=== PATIENT | male | born 1985 ===

== ENCOUNTER 2024-01-14 16:13 | Emergency (ER) | payer OTHER, SELFPAY ==
[2024-01-14 16:14] VITALS: BP 129/81
[2024-01-14 16:25] LABS: Glucose - Point of Care 140 mg/dl (70-99)
--- NOTE | 2024-01-14 16:25 | ED.GENMED ---
History of Present Illness
General
Chief Complaint: Change in Mental Status
Time Seen by Provider: 01/14/24 16:17
History of Present Illness
History of Present Illness:
38-year-old male presents requesting a correctional facility due to altered mental status. He has been in custody since yesterday according to nursing home guards at the bedside they have been having difficulty restraining him and he is minimally
communicative. He had a fall yesterday striking his head on the door and he has also been reportedly drinking urine toilet. On arrival the patient appears catatonic but will occasionally call out in a foreign language. He does respond to simple
questions on occasion.
Review of Systems
Review of Systems
Allergies reviewed?: Yes
All Other Systems: ROS reviewed and negative except as documented in HPI and ROS
Phy Exam
Physical Exam
Physical Exam:
GEN: Lying still in exam bed, catatonic with occasional jerking motions of the extremities
HEENT: Ecchymosis to the right orbit with no swelling or deformity oral mucosa moist, no scleral icterus
Cardiac: Regular rate
Lung: No respiratory distress, no tachypnea
MSK: No gross deformity or injuries
Skin: Good color, no pallor or jaundice, no rashes
Neuro: Eyes open, occasionally responds to basic questions, appears to be responding to internal stimuli
Psych: Generally uncooperative, does not follow commands, catatonic
Course
Orders/Labs/Results
Orders:
Orders
01/14/24 16:24
CT Head W/o Iv Contrast Urgent
Comment:
Reason For Exam: AMS
01/14/24 16:52
CPK [Creatine Phosphokinase] Urgent
Complete Blood Count/With Diff Urgent
Comprehensive Metabolic Panel Urgent
Urinalysis Reflex To Culture Urgent
Date Specimen was Collected: 01/14/24
Time Specimen was Collected: 16:51
Urine Microscopic Reflex Cult Urgent
01/14/24 16:58
Straight Cath As Directed
Frequency: One time now
01/14/24 17:31
Add On- LAB Urgent
Tests Added?: TSH
01/14/24 17:34
Olanzapine [Zyprexa] 5 mg IM NOW STA
01/14/24 17:43
Sterile Water [Sterile Water For Injection] 2.1 ml IM NOW STA
Abnormal Lab Results
01/14/24 01/14/24
16:23 16:52
Hct 38.3 L %
(39.0-52.0)
MCV 75.7 L fL
(80.0-94.0)
MCH 26.7 L pg
(27.0-31.0)
RDW 16.0 H %
(11.5-14.5)
Abs Immat Gran (auto) 0.3 H 10^3/uL
(0-0.05)
Absolute Monos (auto) 1.6 H 10^3/uL
(0.1-0.6)
Immature Gran % 3.2 H %
(0-0.5)
Lymphocytes % 19.0 L %
(20.5-51.1)
Monocytes % 15.0 H %
(1.7-9.3)
Carbon Dioxide 21 L mmol/L
(22-30)
BUN 29 H mg/dl
(9-20)
Glucose 138 H mg/dl
(70-99)
Creatine Kinase 315 H U/L
(55-170)
Urine Ketones 1+ A
(Negative)
Ur Occult Blood Reflex Trace A
(Negative)
Urine RBC 3-6 A /HPF
(0-2)
Urine Glucose 2+ A
(Negative)
POC Glucose 140 H mg/dl
(70-99)
01/14/24 16:52
01/14/24 16:52
Vital Signs
Initial and Last Documented VS:
Initial Vital Signs
Temp Pulse Resp BP Pulse Ox
97.8 F 92 18 129/81 100
01/14/24 16:14 01/14/24 16:14 01/14/24 16:14 01/14/24 16:14 01/14/24 16:14
Last Documented Vital Signs
Temp Pulse Resp BP Pulse Ox
97.8 F 92 18 129/81 100
01/14/24 16:14 01/14/24 16:14 01/14/24 16:14 01/14/24 16:14 01/14/24 16:14
MDM/Problems Addressed
MDM/Problems Addressed:
Likely acute behavioral psychosis, medical evaluation is unremarkable and CT of the head is normal. IM Zyprexa given to the patient prior to discharge back to [facility]. I did call the medical eugene at the correctional facility as he
will likely need psychiatric evaluation in nursing home
*Critical Care Note
Total Time (30-74mins, 75-104mins- exclusive of procedures): Not Applicable
ED Attending Note
-
Portions of this chart may have been created with voice recognition software.� Occasional wrong word or��sound alike� substitutions may have occurred due to the inherent limitations of voice recognition software.
Discharge Plan
Departure
Patient Disposition: Home (Routine Discharge)
Date of Disposition: 01/14/24
Time of Disposition: 17:49
Patient with high blood pressure during this ER visit?: No
Discharge Problem:
Acute psychosis
Instructions: Acute Psychosis (DC)
Referrals:
[facility] [Family Provider] -
Interventions
Interventions:
*Risk Screen - Suicide Last Done: 01/14/24 16:14
*General Assessment Last Done: 01/14/24 16:14
*Neglect/Abuse Screening Last Done: 01/14/24 16:14
*ED COVID-19 Vaccine History Last Done: 01/14/24 16:57
*Nursing Disposition Last Done: 01/14/24 18:06
ED- Pulmonary Assessment Last Done: 01/14/24 18:06
ED-Psychological Assessment Last Done: 01/14/24 18:06
ED- Neurological Assessment Last Done: 01/14/24 16:59
Discharge Date and Time
Discharge Date/Time: 01/14/24 18:00
Print Language: MACEDONIAN
[2024-01-14 17:04] LABS: % Basophils 0.4 % (0-2); % Eosinophils 1.9 % (0-6); % Immature Granulocytes 3.2 % (0-0.5); % Neutrophils 60.5 % (42.2-75.2); Absolute Eosinophils 0.2 10^3/uL (0-0.7); Absolute Immature Granulocytes 0.3 10^3/uL (0-0.05); Absolute Monocytes 1.6 10^3/uL (0.1-0.6); Absolute Neutrophils 6.4 10^3/uL (1.4-6.5); Hematocrit 38.3 % (39.0-52.0); Hemoglobin 13.5 g/dL (13.0-18.0); Mean Corp Hgb Conc. 35.2 g/dL (33.0-37.0); Mean Corpuscular Hgb 26.7 pg (27.0-31.0); Mean Corpuscular Volume 75.7 fL (80.0-94.0); Mean Platelet Volume 9.3 fL (7.4-10.4); Nucleated Red Blood Cells % 0 % (-); Platelet Count 305 10^3/uL (130-400); Red Blood Cell Count 5.06 10^6/uL (4.70-6.10); White Blood Cell Count 10.5 10^3/uL (4.8-10.8)
[2024-01-14 17:08] LABS: Urine Albumin Trace (Neg - Trace); Urine Bilirubin Negative (Negative); Urine Character Clear (Clear); Urine Color Yellow; Urine Glucose 2+ (Negative); Urine Ketone 1+ (Negative); Urine Leukocyte Negative (Negative); Urine Nitrite Negative (Negative); Urine Occult Blood Trace (Negative); Urine Urobilinogen Negative (Neg - 1+)
[2024-01-14 17:23] LABS: Urine Squamous Cell 0-2 /LPF (Few); Urine White Cell 0-2 /HPF (0-5)
[2024-01-14 17:25] LABS: ALT (SGPT) 27 U/L (0-50); AST (SGOT) 33 U/L (17-59); Alkaline Phosphatase 63 U/L (38-126); Blood Urea Nitrogen 29 mg/dl (9-20); Calcium 9.1 mg/dl (8.4-10.2); Carbon Dioxide 21 mmol/L (22-30); Chloride 103 mmol/L (98-107); Creatine Phosphokinase 315 U/L (55-170); Glucose 138 mg/dl (70-99); Sodium 139 mmol/L (135-145); Total Bilirubin 0.4 mg/dl (0.2-1.3); Total Protein 6.7 g/dl (6.3-8.2); eGFR > 60.00
[2024-01-14] MEDS: ZYPREXA 5 MG IM (17:47)
[2024-01-14] MEDS: STERILE WATER FOR INJECTION 2.1 ML IM (17:47)
== END 2024-01-14 18:00 | disposition home or self-care (01) ==
LOC: EMR 16:13
PROVIDERS: Physician Assistant; EMERGENCY PHYSICIAN Emergency Medicine
DX: F23 Brief psychotic disorder (principal); S09.90XA Unspecified injury of head, initial encounter; S05.11XA Contusion of eyeball and orbital tissues, right eye, initial encounter; W19.XXXA Unspecified fall, initial encounter; W22.09XA Striking against other stationary object, initial encounter
CPT/HCPCS: 99284; 96372; 70450; 80053; 81003; 81015; 82550; 82962; 85025; J2358